=== PATIENT | male | born 1985 | race Caucasian/White ===

== ENCOUNTER 2023-12-21 15:56 | Emergency (ER) | payer OTHER ==
[~2023-12-21] VITALS: Ht 175.3 cm; Wt 76.5 kg
[2023-12-21 15:59] VITALS: BP 146/86; TEMP 97.9; O2SAT 99
[2023-12-21] MEDS ORDERED: EMTR1TAB16 PO (16:34)
[2023-12-21] MEDS: MORPHINE 30 MG TAB **MSIR PO ONE (21:40)
[2023-12-21] MEDS: ONDANSETRON 4MG ORAL DISINTEGRATING TAB PO ONE (21:54)
[2023-12-21] MEDS ORDERED: MORP15TA2 PO (22:00)
[2023-12-21] MEDS ORDERED: ONDA4TAB6 PO (22:00)
[2023-12-21] MEDS ORDERED: NARC1SPR NARES (22:00)
== END 2023-12-21 22:13 | disposition home or self-care (01) ==
LOC: M ED 15:56
DX: T85.695A Other mechanical complication of other nervous system device, implant or graft, initial encounter (principal); F11.23 Opioid dependence with withdrawal; F43.10 Post-traumatic stress disorder, unspecified; F90.9 Attention-deficit hyperactivity disorder, unspecified type; G43.909 Migraine, unspecified, not intractable, without status migrainosus; G80.9 Cerebral palsy, unspecified; F17.290 Nicotine dependence, other tobacco product, uncomplicated; Z79.899 Other long term (current) drug therapy

== ENCOUNTER → 2024-03-20 | Outpatient (REF) | payer OTHER ==
[~2024-03-20] MED LIST: EMTR1TAB16 PO; MORP15TA2 PO; NARC1SPR NARES; ONDA4TAB6 PO
== END ==
LOC: M SFHCDERM 12:34
PROVIDERS: ATTEND Physician Assistant
DX: L72.3 Sebaceous cyst (principal)